=== PATIENT | male | born 1995 | race Caucasian/White ===

== ENCOUNTER 2023-02-12 09:34 | Outpatient (CLI) | payer OTHER, SELFPAY ==
--- NOTE | ~2023-02-12 | US_ITS ---
Abdominal Sonogram: Real-time sonographic imaging of the abdomen was performed. Clinical History: Abdominal pain Findings: The liver appears normal with no evidence of mass lesion or bile duct dilatation. Main por zuri vein demonstrates normal direction of flow. The spleen is normal in size without evidence of foca l lesion. The gallbladder is well distended, and appears normal with no evidence of gallstone or wal l thickening. The common bile duct measures 2 mm. The visualized pancreas, aorta, and IVC are unrema rkable. The right kidney measures 9.6 cm in length and the left kidney measures 10.0 cm. There is n o hydronephrosis or renal calculus. Impression: Unremarkable abdominal ultrasound. Reviewed, dictated and finalized at location . Impression: Unremarkable abdominal ultrasound.
[2023-02-12 11:06] LABS: Basophils Absolute Auto 0.1 K/mm3 (0.0-0.1); Basophils Percent Auto 0.9 % (0.2-1.2); Eosinophils Absolute Auto 0.6 K/mm3 (0-0.3); Hemoglobin 14.6 g/dL (14.0-18.0); Immature Granulocyte Absolute 0.02 K/mm3 (0.00-0.031); Immature Granulocyte Percent A 0.3 % (0-0.5); Lymphocytes Absolute Auto 1.84 K/mm3 (0.9-3.2); Lymphocytes Percent Auto 23.3 % (18.3-44.2); Mean Corpuscular HGB Conc 32.4 g/dl (32-36); Mean Corpuscular Hemoglobin 27.7 pg (26-34); Mean Corpuscular Volume 85.4 fl (80-100); Mean Platelet Volume 10.2 fl (7.4-10.4); Monocytes Absolute Auto 0.6 K/mm3 (0.1-0.6); Monocytes Percent Auto 8.1 % (2.6-8.5); Neutrophils Absolute Auto 4.7 K/mm3 (1.3-6.7); Neutrophils Percent Auto 59.4 % (45.5-73.1); Platelet Count Result 289 k/mm3 (150-375); Red Blood Count 5.27 M/mm3 (4.6-6.20); White Blood Count 7.9 K/mm3 (4.5-10.0)
[2023-02-12 11:17] LABS: Alanine Aminotransferase 24 U/L (6-50); Albumin Level 4.9 g/dL (3.5-5.1); Alkaline Phosphatase 55 U/L (38-126); Amylase 83 U/L (30-110); Anion Gap 6 mmol/L (8-16); Aspartate Amino Transferase 27 U/L (17-59); Bilirubin,Total 0.7 mg/dL (0.2-1.3); Blood Urea Nitrogen 12 mg/dL (9-20); Calcium 9.6 mg/dL (8.4-10.2); Carbon Dioxide 32 mmol/L (22-30); Chloride 102 mmol/L (98-107); Cholesterol 245 mg/dL (0-200); Estimated Glomerular Filt Rate > 60; Glucose 97 mg/dL (65-110); HDL Direct 61 mg/dL; Lipase 35 U/L (23-300); Potassium 4.5 mmol/L (3.4-5.0); Sodium 140 mmol/L (137-145); Triglycerides 96 mg/dL (<150)
[2023-02-12 11:28] LABS: LDL Cholesterol Direct 137 mg/dL
== END 2023-02-12 09:35 | disposition home or self-care (01) ==
PROVIDERS: PCP Emergency Medicine; Visit Provider Nurse Practitioner Family
DX: R10.9 Unspecified abdominal pain (principal); F32.A Depression, unspecified; F41.9 Anxiety disorder, unspecified
CPT/HCPCS: 36415; 76700; 80053; 80061; 82150; 83690; 84443; 85025

== ENCOUNTER 2023-02-19 08:56 | Emergency (ER) | payer OTHER, SELFPAY ==
[2023-02-19 09:27] VITALS: BP 133/95; PULSE 81; RESP 16; TEMP 36.6; O2SAT 100
--- NOTE | 2023-02-19 09:48 | ED.GENADULT ---
HPI - General Adult General Chief complaint: Allergic Reaction Stated complaint: immunization reaction,seizure Time Seen by Provider: 02/19/23 09:35 Source: patient and RN notes reviewed Mode of arrival: ambulatory Limitations: no limitations History of Present Illness HPI narrative: Patient presents today stating that 3 days ago he experienced a seizure while in his car after receiving a Twinrix vaccine at [facility]. The driver's license examiner of the car told patient he lost consciousness for approximately 2 minutes and stopped breathing. Patient subsequently called his PCP who told him to go to the ER or urgent care for evaluation, but patient waited a few days to do this. Patient states he has had reactions like this after receiving injections/vaccines, but they have not lasted as long as this one. Patient states he is feeling anxious regarding the incident and is taking his prescribed Wellbutrin XL and PRN Atarax, which has been helping some. Related Data Home Medications Medication Instructions Recorded Confirmed bupropion HCl 150 mg tablet,12 hr 150 mg PO DAILY 01/30/23 02/19/23 sustained-release (Wellbutrin SR) hydroxyzine HCl 25 mg tablet 25 mg PO BID PRN Anxiety 01/30/23 02/19/23 lamotrigine 25 mg tablet 25 mg PO DAILY 01/30/23 02/19/23 Allergies Allergy/AdvReac Type Severity Reaction Status Date / Time Penicillins Allergy Severe Fever Verified 02/19/23 09:35 Review of Systems Review of Systems: CONSTITUTIONAL: Denies body aches, fever, chills, or sweats. EYES: Denies visual changes, redness, or discharge. ENT: Denies rhinorrhea, congestion, sore throat, or otalgia. CARDIOVASCULAR: Denies chest pain, palpitations, or edema. RESPIRATORY: Denies cough or dyspnea. GASTROINTESTINAL: Denies abdominal pain, nausea, vomiting, or diarrhea. GENITOURINARY: Denies dysuria or hematuria. SKIN: Denies rash, itching, or wounds. MUSCULOSKELETAL: Denies back pain, joint pain, or myalgia. NEUROLOGIC: Denies headache, numbness, tingling, or weakness. PSYCH: Denies depression or anxiety. [facility] Past Medical History Medical History GERD (gastroesophageal reflux disease) related to soda intake, well controlled. History of gynecomastia Surgical History Surgical History History of removal of cyst to correct gynecomastia Family History Family History Mother Kidney disease Renal artery stenosis Grandparent Diabetes mellitus Social History Social History Smoking status: Never smoker (vapes, no nicotine. ) Tobacco type: e-cigarettes/vaping Second hand tobacco smoke exposure: No Alcohol intake: former Alcohol use details: quit 01/30/2021 Substance use: current Substance use type: marijuana Comments At time of signature, I have reviewed and agree with nursing past medical, surgical, social and family history unless otherwise noted. Please see nursing chart for further information. There is no relevant family history pertinent to the presenting complaint Exam Narrative: GENERAL: Well-appearing, well-nourished, and in no acute distress. HEAD: Normocephalic, atraumatic. EYES: EOMI. PERRL. No redness or drainage. Conjunctivae normal. ENT: Mucous membranes pink and moist. Nares clear. No rhinorrhea. Throat normal. Uvula midline. NECK: Normal AROM. Supple. No lymphadenopathy. CHEST: No respiratory distress. Clear to auscultation. HEART: Regular rate and rhythm. No murmur appreciated. ABDOMEN: Soft, nontender, nondistended, normal active bowel sounds. EXTREMITIES: Normal range of motion. No edema. Hand supervisor title equal and strong. Dorsiflexion and plantar flexion equal and strong against resistance. SKIN: Warm, dry, no rash. Capillary refill normal. Normal skin turgor.
== END 2023-02-19 10:00 | disposition home or self-care (01) ==
PROVIDERS: Emergency Provider Nurse Practitioner; PCP Emergency Medicine
DX: Z71.1 Person with feared health complaint in whom no diagnosis is made (principal); K21.9 Gastro-esophageal reflux disease without esophagitis; F12.90 Cannabis use, unspecified, uncomplicated; F41.9 Anxiety disorder, unspecified
CPT/HCPCS: 99211; G0463

== ENCOUNTER 2023-02-19 13:02 | Emergency (ER) | payer OTHER, SELFPAY ==
[2023-02-19] VITALS (23 sets, daily range): BP systolic 125–153; BP diastolic 75–108; PULSE 68–116; RESP 12–34; TEMP 36.5–36.6; O2SAT 96–100
--- NOTE | ~2023-02-19 | XR_ITS ---
EXAMINATION: XR chest 2V 02/19/2023 16:54 INDICATION: Chest tightness. Presyncope. PROCEDURE: 2 view chest COMPARISON: No prior studies for comparison. FINDINGS: The lungs are clear. The cardiomediastinal silhouette is within normal limits. There are no pleural effusions. There is no pneumothorax suspected. IMPRESSION: 1: NO ACUTE CARDIOPULMONARY DISEASE. Reviewed, dictated and finalized at location L.
--- NOTE | 2023-02-19 13:05 | ECG_ITS ---
Measurements Intervals [place] Rate: 92 P: 71 MS: 112 QRS: 31 QRSD: 79 T: 59 QT: 307 QTc: 380 Interpretive Statements SINUS RHYTHM WITH SHORT MS INTERVAL INCOMPLETE RIGHT BUNDLE BRANCH BLOCK NO PREVIOUS ECG AVAILABLE FOR COMPARISON Electronically Signed On 02-19-2023 14:07:04 CDT by Sudarshan Pandya M.D.
[2023-02-19 13:29] LABS: Basophils Absolute Auto 0.1 K/mm3 (0.0-0.1); Basophils Percent Auto 1.2 % (0.2-1.2); Eosinophils Absolute Auto 0.2 K/mm3 (0-0.3); Eosinophils Percent Auto 2.6 % (0-4.4); Hematocrit 45.6 % (42.0-52.0); Hemoglobin 14.8 g/dL (14.0-18.0); Immature Granulocyte Absolute 0.02 K/mm3 (0.00-0.031); Immature Granulocyte Percent A 0.3 % (0-0.5); Lymphocytes Absolute Auto 1.76 K/mm3 (0.9-3.2); Lymphocytes Percent Auto 26.9 % (18.3-44.2); Mean Corpuscular HGB Conc 32.5 g/dl (32-36); Mean Corpuscular Hemoglobin 27.9 pg (26-34); Mean Corpuscular Volume 85.9 fl (80-100); Mean Platelet Volume 10.2 fl (7.4-10.4); Monocytes Absolute Auto 0.6 K/mm3 (0.1-0.6); Monocytes Percent Auto 8.4 % (2.6-8.5); Neutrophils Percent Auto 60.6 % (45.5-73.1); Platelet Count Result 293 k/mm3 (150-375); Red Blood Count 5.31 M/mm3 (4.6-6.20); Red Cell Distribution Width 13.3 % (11.5-14.5); White Blood Count 6.6 K/mm3 (4.5-10.0)
[2023-02-19 13:43] LABS: Alanine Aminotransferase 24 U/L (6-50); Albumin Level 5.2 g/dL (3.5-5.1); Alkaline Phosphatase 56 U/L (38-126); Anion Gap 7 mmol/L (8-16); Aspartate Amino Transferase 27 U/L (17-59); Bilirubin,Total 0.4 mg/dL (0.2-1.3); Blood Urea Nitrogen 14 mg/dL (9-20); Calcium 9.6 mg/dL (8.4-10.2); Carbon Dioxide 30 mmol/L (22-30); Chloride 102 mmol/L (98-107); Estimated CRCL calculation 74 ml/min; Estimated Glomerular Filt Rate > 60; Glucose 117 mg/dL (65-110); Potassium 4.7 mmol/L (3.4-5.0); Sodium 139 mmol/L (137-145)
--- NOTE | 2023-02-19 16:36 | ED.SYNCOPE ---
HPI - Syncope General Chief Complaint: Syncope Stated Complaint: dizzy/syncope/chest and head hot Time Seen by Provider: 02/19/23 15:18 History of Present Illness HPI narrative: Patient is a 27-year-old male with a history of anxiety presenting with presyncope. Patient states that he had a vaccination for hep A and hep B a couple of days ago. Shortly after this he had an episode of passing out and states that he was not breathing for 2 minutes. States that he returned to baseline afterwards and felt okay. The next day he had an episode of vomiting so he called his doctor who advised that he come to the ER or urgent care for evaluation. He went to urgent care earlier today and was discharged home after normal work-up. Patient states that when he got home he smoked a little bit of marijuana and then he was standing in the kitchen to get some food when he became very lightheaded and developed chest tightness. States that the chest tightness has resolved. He denies shortness of breath. States that he has been struggling with decreased appetite for the last several months. States that he has been trying to keep up his p.o. intake. States that he has also been peeing more frequently and feels like he is not fully emptying his bladder. He denies fevers or chills, headache, numbness or weakness, abdominal pain, dysuria, diarrhea, leg swelling. Does complain of constipation. Related Data Home Medications Medication Instructions Recorded Confirmed bupropion HCl 150 mg tablet,12 hr 150 mg PO DAILY 01/30/23 02/23/23 sustained-release (Wellbutrin SR) hydroxyzine HCl 25 mg tablet 25 mg PO BID PRN Anxiety 01/30/23 02/23/23 lamotrigine 25 mg tablet 25 mg PO DAILY 01/30/23 02/23/23 Allergies Allergy/AdvReac Type Severity Reaction Status Date / Time Penicillins Allergy Severe Fever Verified 02/23/23 14:25 Review of Systems Review of Systems: All systems reviewed & are unremarkable except as noted in HPI and below PMFSH Past Medical History Medical History GERD (gastroesophageal reflux disease) related to soda intake, well controlled. History of gynecomastia Surgical History Surgical History History of removal of cyst to correct gynecomastia Family History Family History Mother Kidney disease Renal artery stenosis Grandparent Diabetes mellitus Social History Social History Smoking status: Never smoker (vapes, no nicotine. ) Tobacco type: e-cigarettes/vaping Second hand tobacco smoke exposure: No Alcohol intake: former Alcohol use details: quit 01/30/2021 Substance use: current Substance use type: marijuana Exam Narrative: GENERAL: Well-appearing, well-nourished, and in no acute distress. Pleasant and cooperative HEAD: Normocephalic, atraumatic. EYES: PERRLA and EOMI. ENT: Nares clear, no rhinorrhea or epistaxis. Mucous membranes moist. NECK: Supple. CHEST: Clear to auscultation. No respiratory distress. HEART: Regular rate and rhythm. No murmur heard. Normal peripheral pulses. ABDOMEN: Soft, nontender, nondistended EXTREMITIES: Normal range of motion. No edema. SKIN: Warm, dry, no rash. NEURO: No focal deficits. Alert and oriented x3. PSYCH: Normal mood and affect. Course Vital Signs Vital signs: Vital Signs Temperature 97.7 F 02/19/23 13:07 Pulse Rate 90 02/19/23 13:07 Respiratory Rate 18 02/19/23 13:07 Blood Pressure 153/108 H 02/19/23 13:07 Pulse Oximetry 100 02/19/23 13:07 Oxygen Delivery Room Air 02/19/23 13:07 Temperature 97.8 F 02/19/23 17:36 Pulse Rate 84 02/19/23 17:15 Respiratory Rate 20 02/19/23 17:15 Blood Pressure 150/88 H 02/19/23 16:31 Pulse Oximetry 99 02/19/23 17:15 Oxygen Delivery Room Air 02/19/23 13:
--- NOTE | 2023-02-19 16:52 | PC.NURSE ---
pt very anxious, declines SLN and fluids and states I was hoping to get my lab work and go.
[2023-02-19 16:58] LABS: Appearance Urine Clear (Clear); Bilirubin Urine Negative (Negative); Blood Urine Negative (Negative); Color Urine Yellow (Yellow); Glucose Urine UA Negative (Negative); Ketones Urine Negative (Negative); Leukocyte Esterase Ur Negative LEU/UL (Negative); Nitrate Urine Negative (Negative); Protein Urine Negative (Negative); Specific Grav Ur 1.009 (1.001-1.035); Urobilinogen Urine 0.2 mg/dL (<2.0)
[2023-02-19 17:15] LABS: Add Urine Microscopic? NO
[2023-02-19 17:34] LABS: Lipase 178 U/L (23-300)
[2023-02-19 17:46] LABS: Troponin I < 0.012 ng/mL (0.000-0.034)
== END 2023-02-19 17:38 | disposition home or self-care (01) ==
PROVIDERS: General Practice; Emergency Provider Emergency Medicine; PCP Emergency Medicine
DX: R55 Syncope and collapse (principal); F41.9 Anxiety disorder, unspecified; J21.9 Acute bronchiolitis, unspecified; F17.290 Nicotine dependence, other tobacco product, uncomplicated; I45.10 Unspecified right bundle-branch block
CPT/HCPCS: 36415; 71046; 80053; 81003; 83690; 84484; 85025; 93005; 99284

== ENCOUNTER 2023-05-06 10:33 | Outpatient (CLI) | payer OTHER, SELFPAY ==
--- NOTE | ~2023-05-06 | US_ITS ---
EXAMINATION: US retroperitoneal duplex ltd DATE: 05/06/2023 11:31 INDICATION: Atherosclerosis of renal arteries TECHNIQUE: Multiple grayscale, color Doppler, and pulsed Doppler images of the kidneys and renal adrian natalie were obtained. COMPARISON: None. FINDINGS: The aorta peak systolic velocity is 139 cm/s. The right renal artery peak systolic velocity is 78 cm/ s in the proximal segment, 100 cm/s in the mid segment, and 106 cm/s in the distal segment. The left renal artery peak systolic velocity is 109 cm/s in the proximal segment, 90 cm/s in the mid segment, and 76 cm/s in the distal segment. IMPRESSION: 1. No Doppler evidence of renal artery stenosis. Reviewed, dictated and finalized at location A.
[2023-05-06 12:09] LABS: Alanine Aminotransferase 27 U/L (6-50); Albumin Level 4.8 g/dL (3.5-5.1); Alkaline Phosphatase 40 U/L (38-126); Anion Gap 6 mmol/L (8-16); Aspartate Amino Transferase 28 U/L (17-59); Bilirubin,Total 0.3 mg/dL (0.2-1.3); Blood Urea Nitrogen 14 mg/dL (9-20); Calcium 9.3 mg/dL (8.4-10.2); Carbon Dioxide 30 mmol/L (22-30); Chloride 101 mmol/L (98-107); Estimated Glomerular Filt Rate > 60; Glucose 99 mg/dL (65-110); Potassium 4.5 mmol/L (3.4-5.0); Sodium 137 mmol/L (137-145)
[2023-05-09 14:50] LABS: Metanephrine, Free 26 pg/mL (<=57); Normetanephrine, Free 155 pg/mL (<=148); Total, Free (MN + NMN) 181 pg/mL (<=205)
[2023-05-11 09:46] LABS: PRA 0.78 ng/mL/h (0.25-5.82)
== END 2023-05-06 10:34 | disposition home or self-care (01) ==
PROVIDERS: PCP Emergency Medicine; Visit Provider Emergency Medicine
DX: I10 Essential (primary) hypertension (principal)
CPT/HCPCS: 36415; 80053; 82088; 83835; 84244; 84443; 93976

== ENCOUNTER 2024-11-10 16:59 | Emergency (ER) | payer OTHER, SELFPAY ==
[2024-11-10 17:15] VITALS: BP 151/88; PULSE 73; RESP 20; TEMP 36.6; O2SAT 100
--- NOTE | 2024-11-10 17:29 | ED.URI ---
HPI - URI/Sore Throat General Chief Complaint: Upper Respiratory Infection Stated Complaint: fever,dizzy,bodyaches,cough Time Seen by Provider: 11/10/24 17:30 Source: patient, RN notes reviewed and old records reviewed Mode of arrival: ambulatory Limitations: no limitations History of Present Illness HPI Narrative: 28 year old male presents to express care with complaints of fevers.body aches, cough has felt dizzy,has had some chest pains with cough and has felt sort of breath at times for the past 4-5 days. Patient reports that he awoke at 0300 Thursday with sweats and chills then the next day he started with the cough, nasal congestion dizziness, body aches headaches and fevers. He reports that he initially took DayQuil and NyQuil but it made him feel funny so he just been taking Tylenol for his symptoms. MD elicited complaint: fever, cough, rhinorrhea and other (body aches, headaches, felt dizziness and some dyspnea at times.) Onset (ago): day(s) (4-5 days) Severity: mild Able to tolerate fluids by mouth: Yes Treatments prior to arrival: acetaminophen Related Data Allergies Allergy/AdvReac Type Severity Reaction Status Date / Time Penicillins Allergy Severe Fever Verified 11/10/24 17:02 Review of Systems Review of Systems: CONSTITUTIONAL: Reports malaise, chills, sweats, or fever. EYES: Denies visual changes, redness, or discharge. ENT: Reports rhinorrhea, congestion, sinus pain, no otalgia and nosore throat. CARDIOVASCULAR: Denies chest pain, palpitations, or edema. RESPIRATORY: Reports cough.? Reports some dyspnea.noted some chest pressure with cough GASTROINTESTINAL: Denies abdominal pain, nausea, vomiting, diarrhea SKIN: Denies rash or itching. MUSCULOSKELETAL: Reports myalgia. NEUROLOGIC: Reports headache. All systems reviewed & are unremarkable except as noted in HPI and below PMFSH Past Medical History Medical History (Updated 11/12/24 @ 12:45 by Sandie Black NP) Anxiety Depression Panic disorder Kidney stones GERD (gastroesophageal reflux disease) related to soda intake, well controlled. History of gynecomastia Surgical History Surgical History History of removal of cyst to correct gynecomastia Family History Family History Mother Kidney disease Renal artery stenosis Grandparent Diabetes mellitus Social History Social History Smoking status: Never smoker (vapes, no nicotine. ) Tobacco type: e-cigarettes/vaping Second hand tobacco smoke exposure: No Alcohol intake: former Alcohol use details: quit 01/30/2021 Substance use: current Substance use type: marijuana Lack of Transportation: No Lack of Food: Never True Current Housing: I Have Housing Concerned About Future Housing: No Difficulty Paying Gas/Electric Bills: No Difficulty Paying for Meds: No Currently Unemployed: No Education: High School Diploma/GED Difficulty w/ Childcare or Family Care: No Comments At time of signature, agree with nursing past medical, surgical, social and family history. There is no relevant family history pertinent to the presenting complaint Exam Narrative: GENERAL: Well-appearing, well-nourished, and in no acute distress. HEAD: Normocephalic EYES: PERRLA, conjunctivae clear ENT: Nares clear, turbinates edematous and erythematous, clear discharge. Mucous membranes moist. TM pearly holloway with dull light reflex bilaterally; no tragal tenderness. Oropharynx erythematous without lesions. Tonsils not enlarged and without exudate, no drooling, no hoarseness, no trismus, uvula midline.post nasal drainage noted NECK: Supple. No lymphadenopathy CHEST: Clear to auscultation, breath sounds equal. No wheezing, rhonchi, rales, or stridor. No respiratory distress, speaks in full sentences.cough productive at times SAO2 100% on room air HEART: Regular rate and rhythm. No murmur heard. SKIN: Warm, dry, no rash. NEURO: Alert and oriented x3. PSYCH: Normal mood and affect Course Course Emergency Course: Patient is aware of diagnosis, understands and agrees to treatment plan.? Anticipatory guidance given.? Patient agrees to follow-up as directed and is aware of reasons to seek care at the emergency department. Portions of this record may have been created with voice recognition software Level of Care: Express Care Visit Vital Signs Vital signs: Vital Signs Temperature 36.6 C 11/10/24 17:15 Pulse Rate 73 11/10/24 17:15 Respiratory Rate 20 11/10/24 17:15 Blood Pressure 151/88 H 11/10/24 17:15 Pulse Oximetry 100 11/10/24 17:15 Oxygen Delivery Room Air 11/10/24 17:15 Temperature 36.6 C 11/10/24 17:15 Pulse Rate 73 11/10/24 17:15 Respiratory Rate 20 11/10/24 17:15 Blood Pressure 151/88 H 11/10/24 17:15 Pulse Oximetry 100 11/10/24 17:15 Oxygen Delivery Room Air 11/10/24 17:15 Reviewed MDM - URI/Sore Throat MDM Narrative Medical decision making narrative: Differential diagnosis considered: Olivares virus, strep pharyngitis, allergic rhinitis, upper respiratory tract infection, sinusitis, rhinosinusitis, nasopharyngitis. viral pharyngitis, otitis media, otitis externa, pneumonia, bronchitis, viral cough syndrome, viral syndrome, and influenza.? Exam findings show no acute concerns or changes; patient is non-toxic appearing and is in no distress.? Patient is appropriate for outpatient treatment and follow-up. Differential Diagnosis Differential diagnosis: Likely upper respiratory infection, viral infection, influenza and other (COVID, cough) Medical Records Attestation: I reviewed the patient's medical records. Lab Data Attestation: I reviewed the patient's lab results. Lab results narrative: influenza A positive, Influenza B negative, COVID antigen negative Labs: Lab Results 11/10/24 Range/Units 17:18 POC Influenza A Ag Positive (Negative) POC Influenza B Ag Negative (Negative) POC SARS CoV-2 Ag Negative (Negative) reviewed Critical Care Time Critical Care Time Critical Care Time: No Discharge Plan Discharge Clinical Impression: Influenza A Patient Disposition: Home, Self-Care Condition: Stable Instructions: Antibiotic Form, Influenza (ED) Additional Instructions: Increase fluids especially juices and water [id number] cough and cold medicine of your choice for your symptoms Cough tablets as directed for cough--do not bite, chew or suck on--swallow whole Steroids as directed--take with food heat to the face 20-30 minutes 4-6 times a day for pain Salt water gargles, throat lozenges or throat sprays as desired Tylenol or ibuprofen for any fever pain Zyrtec Claritin or Dacia daily Recommend Delsym or Robitussin cough syrup Monitor fevers every 4 hours Must be fever free for 24 hours without use of Tylenol or ibuprofen before you can return to work If your symptoms persist, change or worsen significantly before you can contact your personal physician then please, without delay, go to the emergency department for further evaluation. Follow-up with PCP in 7-10 days or sooner if needed Follow up with PCP soon in regards to your blood pressure which is elevated above threshold for referral. Blood pressure above 120/80 may indicate pre-hypertension. Patient Language: Hebrew Prescriptions: New benzonatate 200 mg capsule 200 mg PO TID PRN (Reason: cough) Qty: 20 0RF methylprednisolone [Medrol (Iggy)] 4 mg tablets,dose pack See Rx Instructions .ROUTE .COMPLEX Qty: 21 0RF Rx Instructions: orally per package directions Follow-up/Referrals: PHYSICIAN,ANIMAL IMPERSONATOR [Primary Care Provider] - Time of Disposition: 17:43 Quality Marissa Coma Scale Eyes: Open Verbal: Oriented and Alert Motor: Follows Commands [place] Coma Total Score: 15
[2024-11-10 17:36] LABS: EDCOVIDSCREEN Negative (Negative); EDINFLUASCREEN Positive (Negative); EDINFLUBSCREEN Negative (Negative)
== END 2024-11-10 17:50 | disposition home or self-care (01) ==
PROVIDERS: Emergency Provider Registered Nurse
DX: J10.1 Influenza due to other identified influenza virus with other respiratory manifestations (principal); Z20.822 Contact with and (suspected) exposure to COVID-19
CPT/HCPCS: 87426; 87804; 99213; G0463